=== PATIENT | female | born 1935 | race Caucasian/White ===

== ENCOUNTER 2023-03-07 17:01 | Inpatient (IN) | payer MEDICARE ==
--- NOTE | 2023-03-07 17:09 | ED ---
General Adult HPI - General Source: RN notes reviewed <Naomi Ordonez - Last Filed: 03/07/23 17:08> <Raad Pinto - Last Filed: 03/07/23 22:04> - General Stated complaint: Blood clot in lung Time Seen by Provider: 03/07/23 17:08 - History of Present Illness Initial comments: 87-year-old female presents to the emergency department with a chief complaint of abnormal imaging. Patient reports that she was traveling from [facility] when her doctor called her to notify her that she has a positive CT for pulmonary embolism. Patient reports shortness of breath upon exertion. (Naomi Ordonez) 87 year Old female with a past medical history significant for uterine cancer presents to the ED with chief complaint of pulmonary embolism. Patient had a full body computed tomography scan performed at 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 Patient reports that she received a call this morning advising her to present to the ED for further evaluation due to finding of segmental and subsegmental PE of the anterior right upper lobe, posterior right lower lobe. No evidence of right heart strain. Also findings of indeterminate lung nodules measuring between 2-3 mm area. She reports that she exercises regularly and normally walks. She states over the past 2-3 months has noticed some increased dyspnea with exertion however reports it has not been severe. Currently reports no shortness of breath. No chest pain. No abdominal pain. No nausea vomiting diarrhea. No other complaints. (Raad Pinto) - Related Data Allergies Allergy/AdvReac Type Severity Reaction Status Date / Time Penicillins AdvReac Causes Verified 03/07/23 22:02 yeast infection Review of Systems ROS Other: All systems not noted in ROS Statement are negative. <Naomi Ordonez - Last Filed: 03/07/23 17:08> ROS Other: All systems not noted in ROS Statement are negative. <Raad Pinto - Last Filed: 03/07/23 22:04> ROS Statement: Those systems with pertinent positive or pertinent negative responses have been documented in the HPI. General Exam <Naomi Ordonez - Last Filed: 03/07/23 17:08> Limitations: no limitations General appearance: alert, in no apparent distress Neck exam: Present: normal inspection Respiratory exam: Present: wheezes (Inspiratory wheezing bilaterally.) Cardiovascular Exam: Present: regular rate, normal rhythm GI/Abdominal exam: Present: soft Neurological exam: Present: alert, oriented X3 Skin exam: Present: warm, dry <GuerdaKari schreiberRaad - Last Filed: 03/07/23 22:04> - General Exam Comments Initial Comments: Visual Physical Exam Vital signs reviewed General: Well-appearing, nontoxic, no acute distress. Head: Normocephalic, atraumatic Eyes: PERRLA, EOMI ENT: Airway patent Chest: Nonlabored breathing Skin: No visual rash, normal skin tone Neuro: Alert and oriented 3 Musculoskeletal: No gross abnormalities I performed the quick note portion of this exam, verbal signature Naomi Ordnoez PA-C (Naomi Ordonez) Course Vital Signs 03/07/23 17:10 Temperature 98.7 F Pulse Rate 78 Respiratory 18 Rate Blood Pressure 182/72 O2 Sat by Pulse 96 Oximetry Medical Decision Making - Lab Data Result diagrams: 03/07/23 19:19 03/07/23 19:19 <BlairRaad - Last Filed: 03/07/23 22:04> - Medical Decision Making Was pt. sent in by a medical professional or institution ([facility], [facility], urgent care, hospital, or [facility]...) When possible be specific @ -No Did you speak to anyone other than the patient for history (EMS, parent, family, police, friend...)? What history was obtained from this source @ -No Did you review nursing and triage notes (agree or disagree)? Why? @ -I reviewed and agree with nursing and triage notes Were old charts reviewed (outside hosp., previous admission, EMS record, old EKG, old radiological studies, urgent care reports/EKG's, [facility] records)? Report findings @ -No old charts were reviewed Differential Diagnosis (chest pain, altered mental status, abdominal pain women, abdominal pain men, vaginal bleeding, weakness, fever, dyspnea, syncope, headache, dizziness, GI bleed, back pain, seizure, CVA, palpatations, mental health, musculoskeletal)? @ -Differential Dyspnea: Coronary syndrome, arrhythmia, tamponade, asthma, COPD, pulmonary embolism, pneumonia, pneumothorax, pulmonary effusion, anaphylaxis, diabetic ketoacidosis, flailed chest, pulmonary contusion, diaphragmatic rupture, anemia, neuromuscular, this is not meant to be an all-inclusive list. EKG interpreted by me (3pts min.). @ -As above X-rays interpreted by me (1pt min.). @ -Chest x-ray interpreted by me showing no evidence of acute finding. CT interpreted by me (1pt min.). @ -None done U/S interpreted by me (1pt. min.). @ -None done What testing was considered but not performed or refused? (CT, X-rays, U/S, labs)? Why? @ -None What meds were considered but not given or refused? Why? @ -None Did you discuss the management of the patient with other professionals (professionals i.e. , PA, [facility], lab, RT, psych nurse, 7th grade social studies teacher, air quality engineer, teacher, weapons electrical engineering officer, rn case manager)? Give summary @ -Case discussed with Dr. Roche who accepts admission. Was smoking cessation discussed for >3mins.? @ -No Was critical care preformed (if so, how long)? @ -Yes, 30 minutes. Were there social determinants of health that impacted care today? How? (Homelessness, low income, unemployed, alcoholism, drug addiction, transportation, low edu. Level, literacy, decrease access to med. care, group home, rehab)? @ -No Was there de-escalation of care discussed even if they declined (Discuss DNR or withdrawal of care, Hospice)? DNR status @ -No What co-morbidities impacted this encounter? (DM, HTN, Smoking, COPD, CAD, Cancer, CVA, ARF, Chemo, Hep., AIDS, mental health diagnosis, sleep apnea, morbid obesity)? @ -None Was patient admitted / discharged? Hospital course, mention meds given and route, prescriptions, significant lab abnormalities, going to OR and other pertinent info. @ -Admission A 87-year-old female with past medical history significant for recently discovered uterine mass presenting to the ED with chief complaint of abnormal imaging. Patient reports finding of uterine mass and had a CT chest abdomen pelvis performed yesterday. This showed segmental and subsegmental PE of the anterior right upper lobe and posterior right lower lobe. Laboratory studies sig nificant for elevated BUN/creatinine 33, creatinine 1.06, and troponin at 0.089. At this time, patient is not having any chest pain. Patient will be admitted with cardiology and pulmonology. IV heparin initiated in the ED. Discussed plan of care with patient and family who are in agreement. Drug Therapy requiring intensive monitoring for toxicity (Heparin, Nitro, Insulin, Cardizem)? @ -No Were any procedures done? @ -No Diagnosis/symptom? @ -Pulmonary embolism, elevated troponin Acute, or Chronic, or Acute on Chronic? @ -Acute Uncomplicated (without systemic symptoms) or Complicated (systemic symptoms)? @ -Complicated Side effects of treatment? @ -No Exacerbation, Progression, or Severe Exacerbation? @ -No Poses a threat to life or bodily function? How? (Chest pain, [place], [place], pneumonia, PE, COPD, DKA, ARF, appy, cholecystitis, CVA, Diverticulitis, Homicidal, Suicidal, threat to staff... and all critical care pts) @ -Dayna (Raad Pinto) - Lab Data Lab Results 03/07/23 03/07/23 03/07/23 Range/Units 19:19 19:19 19:19 WBC 8.1 (3.8-10.6) k/uL RBC 4.12 (3.80-5.40) m/uL Hgb 12.6 (11.4-16.0) gm/dL Hct 37.9 (34.0-46.0) % MCV 91.8 (80.0-100.0) fL MCH 30.7 (25.0-35.0) pg MCHC 33.4 (31.0-37.0) g/dL RDW 12.1 (11.5-15.5) % Plt Count 393 (150-450) k/uL MPV 7.7 Neutrophils % 69 % Lymphocytes % 20 % Monocytes % 6 % Eosinophils % 3 % Basophils % 0 % Neutrophils # 5.5 (1.3-7.7) k/uL Lymphocytes # 1.6 (1.0-4.8) k/uL Monocytes # 0.5 (0-1.0) k/uL Eosinophils # 0.2 (0-0.7) k/uL Basophils # 0.0 (0-0.2) k/uL PT 10.6 (10.0-12.5) sec INR 1.0 (<1.2) APTT 22.7 (22.0-30.0) sec Sodium 140 (137-145) mmol/L Potassium 4.4 (3.5-5.1) mmol/L Chloride 106 (98-107) mmol/L Carbon Dioxide 20 L (22-30) mmol/L Anion Gap 14 mmol/L BUN 33 H (7-17) mg/dL Creatinine 1.06 H (0.52-1.04) mg/dL Est GFR (CKD-EPI)AfAm 56 (>60 ml/min/1.73 sqM) Est GFR (CKD-EPI)NonAf 48 (>60 ml/min/1.73 sqM) Glucose 97 (74-99) mg/dL Calcium 10.3 H (8.4-10.2) mg/dL Total Bilirubin 0.4 (0.2-1.3) mg/dL AST 26 (14-36) U/L ALT 25 (4-34) U/L Alkaline Phosphatase 122 (38-126) U/L Troponin I (0.000-0.034) ng/mL NT-Pro-B Natriuret Pep 831 pg/mL Total Protein 7.3 (6.3-8.2) g/dL Albumin 4.4 (3.5-5.0) g/dL 03/07/23 Range/Units 19:19 WBC (3.8-10.6) k/uL RBC (3.80-5.40) m/uL Hgb (11.4-16.0) gm/dL Hct (34.0-46.0) % MCV (80.0-100.0) fL MCH (25.0-35.0) pg MCHC (31.0-37.0) g/dL RDW (11.5-15.5) % Plt Count (150-450) k/uL MPV Neutrophils % % Lymphocytes % % Monocytes % % Eosinophils % % Basophils % % Neutrophils # (1.3-7.7) k/uL Lymphocytes # (1.0-4.8) k/uL Monocytes # (0-1.0) k/uL Eosinophils # (0-0.7) k/uL Basophils # (0-0.2) k/uL PT (10.0-12.5) sec INR (<1.2) APTT (22.0-30.0) sec Sodium (137-145) mmol/L Potassium (3.5-5.1) mmol/L Chloride (98-107) mmol/L Carbon Dioxide (22-30) mmol/L Anion Gap mmol/L BUN (7-17) mg/dL Creatinine (0.52-1.04) mg/dL Est GFR (CKD-EPI)AfAm (>60 ml/min/1.73 sqM) Est GFR (CKD-EPI)NonAf (>60 ml/min/1.73 sqM) Glucose (74-99) mg/dL Calcium (8.4-10.2) mg/dL Total Bilirubin (0.2-1.3) mg/dL AST (14-36) U/L ALT (4-34) U/L Alkaline Phosphatase (38-126) U/L Troponin I 0.089 H* (0.000-0.034) ng/mL NT-Pro-B Natriuret Pep pg/mL Total Protein (6.3-8.2) g/dL Albumin (3.5-5.0) g/dL - EKG Data EKG Comments: EKG shows a sinus rhythm with T-wave inversions in leads 3. OR 174, QRS 85, QT/QTc 363/384. (Raad Pinto) Disposition <Naomi Ordonez - Last Filed: 03/07/23 17:08> <Raad Pinto - Last Filed: 03/07/23 22:04> Clinical Impression: Pulmonary embolism, Elevated troponin Disposition: ADMITTED IP TO THIS [facility] Referrals: Nonstaff,Physician [Primary Care Provider] - 1-2 days
[2023-03-07 19:33] LABS: Basophils % (A) 0 %; Eosinophils # (A) 0.2 k/uL (0-0.7); Eosinophils % (A) 3 %; HCT 37.9 % (34.0-46.0); HGB 12.6 gm/dL (11.4-16.0); Lymphocytes # (A) 1.6 k/uL (1.0-4.8); Lymphocytes % (A) 20 %; MCH 30.7 pg (25.0-35.0); MCHC 33.4 g/dL (31.0-37.0); MCV 91.8 fL (80.0-100.0); Mean Platelet Volume 7.7; Monocytes # (A) 0.5 k/uL (0-1.0); Monocytes % (A) 6 %; Neutrophils # (A) 5.5 k/uL (1.3-7.7); Neutrophils % (A) 69 %; Platelet Count 393 k/uL (150-450); RBC 4.12 m/uL (3.80-5.40); RDW 12.1 % (11.5-15.5); WBC 8.1 k/uL (3.8-10.6)
[2023-03-07 19:44] LABS: ALT 25 U/L (4-34); AST 26 U/L (14-36); African American GFR (CKD) 56 (>60 ml/min/1.73 sqM); Albumin 4.4 g/dL (3.5-5.0); Alkaline Phosphatase 122 U/L (38-126); Anion Gap 14 mmol/L; Blood Urea Nitrogen 33 mg/dL (7-17); Calcium 10.3 mg/dL (8.4-10.2); Carbon Dioxide 20 mmol/L (22-30); Chloride 106 mmol/L (98-107); Glucose 97 mg/dL (74-99); Non-African American GFR(CKD) 48 (>60 ml/min/1.73 sqM); Potassium 4.4 mmol/L (3.5-5.1); Sodium 140 mmol/L (137-145); Total Bilirubin 0.4 mg/dL (0.2-1.3); Total Protein 7.3 g/dL (6.3-8.2)
[2023-03-07 19:53] LABS: NT-Pro-B-Type Natriuretic Pept 831 pg/mL
--- NOTE | 2023-03-07 19:58 | XR ---
EXAMINATION TYPE: XR chest 2V DATE OF EXAM: 03/07/2023 COMPARISON: NONE HISTORY: Shortness of breath TECHNIQUE: Frontal and lateral views of the chest are obtained. FINDINGS: Mild underlying emphysematous changes are felt present on lateral view. There is no focal air space opacity, pleural effusion, or pneumothorax seen. Mild cardiomegaly is seen. The osseous s tructures are intact. IMPRESSION: Mild cardiomegaly without acute pulmonary process.
[2023-03-07 20:41] LABS: Partial Thromboplastin Time 22.7 sec (22.0-30.0); Prothrombin Time 10.6 sec (10.0-12.5)
[2023-03-07] MEDS ORDERED: HEPARIN SODIUM 1,000 UN/ML (10ML VL) IV ONE (21:57)
[2023-03-07] MEDS ORDERED: HEPARIN SODIUM 1,000 UN/ML (10ML VL) IV PRN (21:57)
[2023-03-07] MEDS ORDERED: HEPARIN SOD,PORK IN 0.45% NACL 25,000 UNIT in 0.45% NACL 1 250ML.BAG IV SCH (22:00)
[2023-03-07] MEDS ORDERED: ACETAMINOPHEN TAB 325 MG TAB PO PRN (22:05)
[2023-03-07] MEDS ORDERED: ONDANSETRON 4 MG/2 ML VIAL IVP PRN (22:05)
[2023-03-07] MEDS ORDERED: NALOXONE 0.4 MG/ML 1 ML VIAL IV PRN (22:05)
[2023-03-07] MEDS ORDERED: HYDROmorphone 1 MG/ML 1 ML SYRINGE IVP PRN (22:05)
[2023-03-07] MEDS: SODIUM CHLORIDE 0.9% 1,000 ML IV SCH (22:16)
[2023-03-08 04:23] LABS: Basophils % (A) 0 %; Eosinophils # (A) 0.3 k/uL (0-0.7); Eosinophils % (A) 5 %; HCT 33.5 % (34.0-46.0); HGB 11.3 gm/dL (11.4-16.0); Lymphocytes # (A) 1.1 k/uL (1.0-4.8); Lymphocytes % (A) 19 %; MCH 30.9 pg (25.0-35.0); MCHC 33.7 g/dL (31.0-37.0); MCV 91.6 fL (80.0-100.0); Mean Platelet Volume 7.7; Monocytes # (A) 0.3 k/uL (0-1.0); Monocytes % (A) 5 %; Neutrophils % (A) 69 %; Platelet Count 379 k/uL (150-450); RBC 3.65 m/uL (3.80-5.40); WBC 5.8 k/uL (3.8-10.6)
[2023-03-08 04:29] LABS: Partial Thromboplastin Time 30.9 sec (22.0-30.0); Prothrombin Time 10.8 sec (10.0-12.5)
--- NOTE | 2023-03-08 08:02 | P.PN ---
Subjective Progress Note Date: 03/08/23 History of Presenting Illness: Patient is a Review of systems: Pertinent positives and negatives as discussed in HPI, a complete review of systems was performed and all other systems are negative. Physical exam: Vital signs reviewed and stable. General: Nontoxic, no distress and appears stated age. Derm: Skin warm and dry, normal coloration for ethnicity. Head: Atraumatic, normocephalic and symmetric. Eyes: EOMs intact, no lid lag, and anicteric sclera Mouth: no lip lesions, mucus membranes moist Cardiovascular: regular rate and rhythm with normal S1S2, no murmur, positive posterior tibial pulses bilaterally, and cap refill < 2 seconds. Lungs: Respirations even, regular, and unlabored on room air. Lungs CTA bilaterally, no rhonchi, no rales, no wheezing, and no accessory muscle usage. Abdominal: soft, nontender to palpation, no guarding, no appreciable organ omegaly Ext: ROM intact. No gross muscle atrophy, no edema, no contractures Neuro: Speech clear, face symmetrical and CN II-XII grossly intact with no noted focal neuro deficits Psych: Alert and oriented to person, place, time, and situation. Appropriate and pleasant affect. Assessment and Plan of Care: The patient is admitted with an anticipated greater than 2 midnight stay for evaluation of []. CODE STATUS:[] DVT prophylaxis: [] Discussed with: [] Anticipated discharge date: [] Anticipated discharge place: [] Patient was seen independently by Nurse Practitioner. This document was prepared using [employer] dictation software. Please allow for errors in senior recruitment consultant while rare they do occur. Objective - Vital Signs Vital signs: Vital Signs Temp 98.7 F 03/07/23 17:10 Pulse 56 L 03/08/23 06:08 Resp 16 03/08/23 06:08 BP 144/97 03/08/23 06:08 Pulse Ox 98 03/08/23 06:08 FiO2 Intake & Output 03/07/23 03/08/23 03/08/23 18:59 06:59 18:59 Intake Total 56.63 Balance 56.63 Weight 69.4 kg Intake: Intake, IV Titration 56.63 Amount Heparin Sod,Pork in 0.45% 56.63 NaCl 25,000 unit In 0.45 % NaCl 1 250ml.bag @ 12 UNITS/KG/HR 8.328 mls/hr IV .Q24H [facility], [facility]1983 Rx#: [id number] - Labs CBC & Chem 7: 03/08/23 03:54 03/07/23 19:19 Labs: Abnormal Lab Results - Last 24 Hours (Table) 03/07/23 03/07/23 03/08/23 Range/Units 19:19 19:19 01:40 RBC (3.80-5.40) m/uL Hgb (11.4-16.0) gm/dL Hct (34.0-46.0) % APTT (22.0-30.0) sec Carbon Dioxide 20 L (22-30) mmol/L BUN 33 H (7-17) mg/dL Creatinine 1.06 H (0.52-1.04) mg/dL Calcium 10.3 H (8.4-10.2) mg/dL Troponin I 0.089 H* 0.071 H* (0.000-0.034) ng/mL 03/08/23 03/08/23 Range/Units 03:54 03:54 RBC 3.65 L (3.80-5.40) m/uL Hgb 11.3 L (11.4-16.0) gm/dL Hct 33.5 L (34.0-46.0) % APTT 30.9 H (22.0-30.0) sec Carbon Dioxide (22-30) mmol/L BUN (7-17) mg/dL Creatinine (0.52-1.04) mg/dL Calcium (8.4-10.2) mg/dL Troponin I (0.000-0.034) ng/mL
--- NOTE | 2023-03-08 08:09 | P.HPIM ---
History of Present Illness H&P Date: 03/08/23 Admission orders placed on this patient on 03/07/23 at 9:24 PM, however [facility] was not notified of this admission until this morning at 7:45 A.M.. History of Presenting Illness: Patient is a very pleasant 87-year-old female with recently diagnosed uterine cancer under care of Dr. Hunt projector operator/oncologist at [facility]. Patient reports she just evaluated by a gynecologic oncologist for possible hysterectomy in May and just finished her last CT for staging of he r cancer and [facility] on 03/06/23. She reports that she and her split their time between their house in [place] and their house in [place]. She reports that they were driving up to [place] when she received a phone call from her doctor informing her that she had blood clots in her lungs and needed to go to the emergency department immediately. She informed her doctor that she was driving to [place] and they did not want her to drive back instructing her to go to the nearest emergency department for treatment. Patient reports that she has been experiencing exertional shortness of breath, decreased exercise tolerance, and occasional shortness of breath at rest. She reports she has been experiencing these symptoms over the past 2 months and that they have progressively worsened and she just contributed it to her recent diagnosis of uterine cancer. She denies having any headache, lightheadedness, dizziness, chest pain/tightness, palpitations, cough or congestion, nausea, vomiting, or experiencing any numbness/tingling/weakness/swelling in her extremities. CT chest, abdomen, and pelvis with IV contrast radiology report from [facility] system has been reviewed stating incidental segmental and subsegmental PE in the anterior right upper lobe and posterior right lower lobe with no reported evidence of heart strain, indeterminate lung nodules measuring between 2-3 mm, and a 3.6 x 2.9 cm heterogeneously enhancing lesion in the lower uterus that likely corresponds to the uterine primary site of recent resection with associated endometrial distention with fluid, 3.9 x 3.3 cm right adnexal cyst, indeterminate subcapsular lesion with peripheral enhancement in the posterior spleen measuring 15 x 5 mm, and no reported enlarged lymph nodes in the chest, abdomen, or pelvis. Upon arrival to our emergency department, patient underwent full evaluation. Initially patient found to have elevated blood pressure 182/72, heart rate 78, respiratory rate 18, temp 98.7F, SpO2 of 96% on room air. Labs were completed and reviewed. CBC was unremarkable. Coagulation profile normal findings. BMP revealed slightly low bicarb of 20 and prerenal azotemia with BUN of 33, creatinine 1.06, and GFR 48. Calcium slightly elevated at 10.3. Liver profile unremarkable. Troponin elevated at 0.089 with proBNP of 831. Influenza A, influenza B, RSV, and Covid PCR were negative.. Patient admitted under our services with consultation hematology/oncology. Review of systems: Pertinent positives and negatives as discussed in HPI, a complete review of systems was performed and all other systems are negative. Physical exam: Vital signs reviewed and stable. General: Nontoxic, no distress and appears stated age. Derm: Skin warm and dry, normal coloration for ethnicity. Head: Atraumatic, normocephalic and symmetric. Eyes: EOMs intact, no lid lag, and anicteric sclera Mouth: no lip lesions, mucus membranes moist Cardiovascular: regular rate and rhythm with normal S1S2, no murmur, positive posterior tibial pulses bilaterally, and cap refill < 2 seconds. Lungs: Respirations even, regular, and unlabored on room air. Lungs CTA bilaterally, no rhonchi, no rales, no wheezing, and no accessory muscle usage. Abdominal: soft, nontender to palpation, no guarding, no appreciable organomegaly Ext: ROM intact. No gross muscle atrophy, no edema, no contractures Neuro: Speech clear, face symmetrical and CN II-XII grossly intact with no noted focal neuro deficits Psych: Alert and oriented to person, place, time, and situation. Appropriate and pleasant affect. Assessment and Plan of Care: Acute pulmonary emboli Elevated troponins, flat likely secondary to PEs -Troponins trended and reviewed. Resulting in 0.089, 0.071, and 0.062. -CT report states no signs of right heart strain however secondary to elevated troponins we will obtain a echocardiogram. -Chest x-ray negative for acute cardiopulmonary process and mild cardiomegaly without acute process. -EKG completed showing normal sinus rhythm at 70 bpm with T-wave inversion in inferior lead II upon personal review and interpretation. -Order placed for echocardiogram. -Patient was placed on heparin infusion in the emergency department and transition to oral Eliquis 10 mg twice a day. -Consult placed to hematology/oncology -Telemetry monitoring Uterine cancer with concerns of metastatic process -Patient recently diagnosed with uterine cancer and currently under final stages of testing and staging and follows with Dr. Cruzito Hunt at [facility]. Data reviewed: -Initially patient found to have elevated blood pressure 182/72, heart rate 78, respiratory rate 18, temp 98.7F, SpO2 of 96% on room air. -Labs were completed and reviewed. CBC was unremarkable. Coagulation profile normal findings. BMP revealed slightly low bicarb of 20 and prerenal azotemia with BUN of 33, creatinine 1.06, and GFR 48. Calcium slightly elevated at 10.3. Liver profile unremarkable. Troponin elevated at 0.089 with proBNP of 831. -Influenza A, influenza B, RSV, and Covid PCR were negative.. The patient is admitted with an anticipated greater than 2 midnight stay for evaluation of acute pulmonary emboli CODE STATUS: Full code DVT prophylaxis: Eliquis Anticipated discharge date: Clinical course to determine, likely 24-[address]: Home Patient was seen independently by Nurse Practitioner. This document was prepared using [employer] dictation software. Please allow for errors in brake repairer bus while rare they do occur. Melvin Nettles NP rendered care for this patient independently, reviewed the findings and plan as documented in the note above. I did not physically speak with or examine the patient on this date. Past Medical History Past Medical History: Cancer Additional Past Medical History / Comment(s): Uterine cancer, PE left lung History of Any Multi-Drug Resistant Organisms: None Reported Past Surgical History: No Surgical Hx Reported Past Psychological History: Anxiety, Depression Smoking Status: Former smoker Past Alcohol Use History: Rare Past Drug Use History: None Reported - Past Family History Mother Family Medical History: Diabetes Mellitus, Myocardial Infarction ([place]) Additional Family Medical History / Comment(s): at age 54 Medications and Allergies Home Medications Medication Instructions Recorded Confirmed Type Losartan/Hydrochlorothiazide 1 tab PO DAILY 03/07/23 03/07/23 History [Hyzaar 100-25 Tablet] Megestrol Acetate 20 mg PO DAILY 03/07/23 03/07/23 History Metoprolol Succinate (ER) [Toprol 50 mg PO DAILY 03/07/23 03/07/23 History Xl] Pravastatin Sodium [Pravachol] 80 mg PO HS 03/07/23 03/07/23 History Allergies Allergy/AdvReac Type Severity Reaction Status Date / Time Penicillins AdvReac Causes Verified 03/07/23 22:02 yeast infection Physical Exam Osteopathic Statement: *. No significant issues noted on an osteopathic structural exam other than those noted in the History and Physical/Consult. Vitals: Vital Signs Temp Pulse Resp BP Pulse Ox 03/08/23 06:08 56 L 16 144/97 98 03/08/23 04:00 58 L 16 159/72 97 03/08/23 03:00 66 18 150/70 97 03/07/23 22:34 88 18 172/74 97 03/07/23 17:10 98.7 F 78 18 182/72 96 Intake and Output 03/07/23 03/08/23 03/08/23 22:59 06:59 14:59 Intake Total 56.63 Balance 56.63 Intake: Intake, IV Titration 56.63 Amount Heparin Sod,Pork in 0.45% 56.63 NaCl 25,000 unit In 0.45 % NaCl 1 250ml.bag @ 12 UNITS/KG/HR 8.328 mls/hr IV .Q24H [facility] Rx#: [id number] Other: Weight 69.4 kg Results CBC & Chem 7: 03/08/23 03:54 03/07/23 19:19 Labs: Abnormal Lab Results - Last 24 Hours (Table) 03/07/23 03/07/23 03/08/23 Range/Units 19:19 19:19 01:40 RBC (3.80-5.40) m/uL Hgb (11.4-16.0) gm/dL Hct (34.0-46.0) % APTT (22.0-30.0) sec Carbon Dioxide 20 L (22-30) mmol/L BUN 33 H (7-17) mg/dL Creatinine 1.06 H (0.52-1.04) mg/dL Calcium 10.3 H (8.4-10.2) mg/dL Troponin I 0.089 H* 0.071 H* (0.000-0.034) ng/mL 03/08/23 03/08/23 Range/Units 03:54 03:54 RBC 3.65 L (3.80-5.40) m/uL Hgb 11.3 L (11.4-16.0) gm/dL Hct 33.5 L (34.0-46.0) % APTT 30.9 H (22.0-30.0) sec Carbon Dioxide (22-30) mmol/L BUN (7-17) mg/dL Creatinine (0.52-1.04) mg/dL Calcium (8.4-10.2) mg/dL Troponin I (0.000-0.034) ng/mL
[2023-03-08] MEDS: METOPROLOL SUCCINATE (ER) 50 MG TAB.ER.24H PO SCH (09:51)
[2023-03-08] MEDS: LOSARTAN-HCTZ 50-12.5 MG 1 EACH TAB PO SCH (10:40)
[2023-03-08] MEDS: SODIUM CHLORIDE 0.9% 1,000 ML IV SCH (13:25)
--- NOTE | 2023-03-08 14:33 | P.CONS ---
History of Present Illness - Reason for Consult Consult date: 03/08/23 Pulmonary embolism - Chief Complaint Cough - History of Present Illness Ms. 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 She recently underwent D&C through the [facility] and was diagnosed with serous adenocarcinoma. 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 In addition to having colonoscopy to evaluate for the presence of colon cancer due to the concern for Rapp Syndrome, she underwent staging CT scan on 03/06/2023 for the uterine adenocarcinoma. They live in [place] and have a home in [place]. On their way to [place], they received a phone call notifying them of an incidental diagnosis of pulmonary embolism. They were advised to present to the closest ED for additional management as opposed to coming back to the [facility] area for care. On presentation, she was found to be hemodynamically stable and afebrile. CBC revealed no evidence of abnormality. CMP revealed mildly high calcium of 10.3. Troponin was initially elevated at 0.089, which downtrended. Viral PCR's were negative. Chest x-ray revealed mild cardiomegaly but no acute cardiopulmonary process. She was started on therapeutic heparin drip hematology be consulted for additional management recommendations. Prior to her presentation, she notes having had cough for the past 2 weeks. Following the cough, she had some sternal chest discomfort. She denied any pleuritic chest pain, dyspnea, or hemoptysis. Of note, she had been prescribed Megace by her physician Dr. Juanita Hunt as an adjunct of treatment for her uterine cancer. She denies any history of recent trauma, prolonged travel outside of car rides to [place], [place], or current cigarette smoking. Review of Systems 14 point review of systems conducted with pertinent positives and negatives as noted per HPI Past Medical History Past Medical History: Cancer Additional Past Medical History / Comment(s): Uterine cancer, PE left lung History of Any Multi-Drug Resistant Organisms: None Reported Past Surgical History: No Surgical Hx Reported Past Psychological History: Anxiety, Depression Smoking Status: Former smoker Past Alcohol Use History: Rare Past Drug Use History: None Reported Medications and Allergies Home Medications Medication Instructions Recorded Confirmed Type Losartan/Hydrochlorothiazide 1 tab PO DAILY 03/07/23 03/07/23 History [Hyzaar 100-25 Tablet] Megestrol Acetate 20 mg PO DAILY 03/07/23 03/07/23 History Metoprolol Succinate (ER) [Toprol 50 mg PO DAILY 03/07/23 03/07/23 History Xl] Pravastatin Sodium [Pravachol] 80 mg PO HS 03/07/23 03/07/23 History Allergies Allergy/AdvReac Type Severity Reaction Status Date / Time Penicillins AdvReac Causes Verified 03/07/23 22:02 yeast infection Physical Exam Vitals: Vital Signs Temp Pulse Resp BP Pulse Ox 03/08/23 11:51 65 18 134/70 99 03/08/23 09:52 57 L 18 150/67 97 03/08/23 06:08 56 L 16 144/97 98 03/08/23 04:00 58 L 16 159/72 97 03/08/23 03:00 66 18 150/70 97 03/07/23 22:34 88 18 172/74 97 03/07/23 17:10 98.7 F 78 18 182/72 96 Intake and Output 03/07/23 03/08/23 03/08/23 22:59 06:59 14:59 Intake Total 56.63 Balance 56.63 Intake: Intake, IV Titration 56.63 Amount Heparin Sod,Pork in 0.45% 56.63 NaCl 25,000 unit In 0.45 % NaCl 1 250ml.bag @ 12 UNITS/KG/HR 8.328 mls/hr IV .Q24H [facility] Rx#: [id number] Other: Weight 69.4 kg - Constitutional General appearance: average body habitus, cooperative, no acute distress - EENT Eyes: EOMI - Respiratory Respiratory: bilateral: CTA - Cardiovascular Rhythm: regular Heart sounds: normal: S1, S2 - Gastrointestinal General gastrointestinal: no distended, normal bowel sounds, soft, no tenderness - Integumentary Integumentary: no rash - Neurologic Neurologic: CNII-XII intact Results CBC & Chem 7: 03/08/23 03:54 03/07/23 19:19 Labs: Abnormal Lab Results - Last 24 Hours (Table) 03/07/23 03/07/23 03/08/23 Range/Units 19:19 19:19 01:40 RBC (3.80-5.40) m/uL Hgb (11.4-16.0) gm/dL Hct (34.0-46.0) % APTT (22.0-30.0) sec Carbon Dioxide 20 L (22-30) mmol/L BUN 33 H (7-17) mg/dL Creatinine 1.06 H (0.52-1.04) mg/dL Calcium 10.3 H (8.4-10.2) mg/dL Troponin I 0.089 H* 0.071 H* (0.000-0.034) ng/mL 03/08/23 03/08/23 03/08/23 Range/Units 03:54 03:54 07:32 RBC 3.65 L (3.80-5.40) m/uL Hgb 11.3 L (11.4-16.0) gm/dL Hct 33.5 L (34.0-46.0) % APTT 30.9 H (22.0-30.0) sec Carbon Dioxide (22-30) mmol/L BUN (7-17) mg/dL Creatinine (0.52-1.04) mg/dL Calcium (8.4-10.2) mg/dL Troponin I 0.062 H* (0.000-0.034) ng/mL 03/08/23 Range/Units 11:38 RBC (3.80-5.40) m/uL Hgb (11.4-16.0) gm/dL Hct (34.0-46.0) % APTT >200.0 H* (22.0-30.0) sec Carbon Dioxide (22-30) mmol/L BUN (7-17) mg/dL Creatinine (0.52-1.04) mg/dL Calcium (8.4-10.2) mg/dL Troponin I (0.000-0.034) ng/mL Assessment and Plan (1) Endometrial/uterine adenocarcinoma Current Visit: Yes Status: Acute Code(s): C54.1 - MALIGNANT NEOPLASM OF ENDOMETRIUM SNOMED Code(s): 124832796 (2) Pulmonary embolism Current Visit: Yes Status: Acute Code(s): I26.99 - OTHER PULMONARY EMBOLISM WITHOUT ACUTE COR PULMONALE SNOMED Code(s): 59796625 Plan: # Pulmonary embolism -Noted to have incidental finding of pulmonary embolism on CT scans obtained at [facility] on 03/06/2023 for staging purposes of recently diagnosed serous adenocarcinoma -Her cough may not have been related to diagnosed pulmonary embolism -In addition to a recent diagnosis of serous adenocarcinoma of the uterus, she was also recently started on Megace by her gynecologic oncologist, which can occur as soon as 10 days after starting Megace -She may have had a provoked pulmonary embolism due to Megace in addition to having increased risk and due to uterine cancer -Recommend obtaining bilateral venous duplex ultrasounds to assess for DVT in the lower extremities -She should stop Megace for right now until she follows up with her gynecologic oncologist as this could have been a contributing factor -From a heme-onc perspective, she can be transition from therapeutic heparin drip to oral Eliquis 10 mg twice daily for 1 week followed by 5 mg twice daily -She should remain on this indefinitely depending on the stage and subsequent treatment of her uterine cancer, which would be determined further by her gynecologic oncologist # Serous adenocarcinoma -Undergoing work-up and management through the [facility] and follows with Dr. 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 Silveira and her .)
--- NOTE | 2023-03-08 15:12 | CA ---
Transthoracic Echo Report Name: Flory Silveira Age: 87 Gender: F : 1935 Exam Date: 03/08/2023 11:02 Exam Location: [facility] Ht (in): 64 Wt (lb): 153 Ordering Physician: Melvin Nettles Attending/Referring Phys: Case Technician Carley Avila [facility] Procedure CPT: Indications: pt with PE, R/O heart strain Cardiac Hx: Technical Quality: Fair Contrast 1: Total Dose (mL): Contrast 2: Total Dose (mL): MEASUREMENTS (Male / Female) Normal Values 2D ECHO LV Diastolic Diameter PLAX 4.4 cm 4.2 - 5.9 / 3.9 - 5.3 cm LV Systolic Diameter PLAX 2.5 cm IVS Diastolic Thickness 1.0 cm 0.6 - 1.0 / 0.6 - 0.9 cm LVPW Diastolic Thickness 0.9 cm 0.6 - 1.0 / 0.6 - 0.9 cm LV Relative Wall Thickness 0.4 RV Internal Dim ED PLAX 2.7 cm LVOT Diameter 2.0 cm Ascending Aorta Diameter 3.1 cm M-MODE Aortic Root Diameter MM 2.2 cm LA Systolic Diameter MM 4.3 cm LA Ao Ratio MM 2.0 AV Cusp Separation MM 1.4 cm DOPPLER AV Peak Velocity 168.9 cm/s AV Peak Gradient 11.4 mmHg AV Mean Velocity 115.4 cm/s AV Mean Gradient 6.0 mmHg AV Velocity Time Integral 35.1 cm LVOT Peak Velocity 127.9 cm/s LVOT Peak Gradient 6.5 mmHg LVOT Velocity Time Integral 30.0 cm LVOT Stroke Volume 95.7 cm??? LVOT Stroke Volume Index 54.8 ml/m??? LVOT Cardiac Index 2949.2 cm???/min???m??? AV Area Cont Eq vti 2.7 cm??? AV Area Cont Eq pk 2.4 cm??? Mitral E Point Velocity 83.1 cm/s Mitral A Point Velocity 105.3 cm/s Mitral E to A Ratio 0.8 MV Deceleration Time 255.7 ms LV E' Lateral Velocity 7.4 cm/s Mitral E to LV E' Lateral Ratio 11.3 LV E' Septal Velocity 6.9 cm/s Mitral E to LV E' Septal Ratio 12.0 TR Peak Velocity 271.6 cm/s TR Peak Gradient 29.5 mmHg Right Atrial Pressure 3.0 mmHg Pulmonary Artery Systolic Pressu 32.5 mmHg Right Ventricular Systolic Press 32.5 mmHg FINDINGS Left Ventricle Mildly increased left ventricular wall thickness. Left ventricular cavity size normal. Normal left ventricular systolic function with no obvious regional wall motion abnormalities. Left ventricular ejection fraction is estimated at 60- 65%. Right Ventricle Upper normal right ventricular size and normal function. Mild pulmonary hypertension. Right Atrium Normal right atrial size. Left Atrium Normal left atrial size. Mitral Valve Mild thickening/calcification of the posterior mitral valve leaflet. No mitral regurgitation. Aortic Valve Aortic valve not well visualized. No aortic valve stenosis or regurgitation. Aortic valve sclerosis. Tricuspid Valve Structurally normal tricuspid valve. Mild tricuspid regurgitation. Pulmonic Valve Pulmonic valve not well visualized. Pericardium Minimal pericardial effusion (normal variant). Echo free space anterior to the right ventricle likely represents a fat pad. Aorta Normal size aortic root and proximal ascending aorta. CONCLUSIONS Mild increased left ventricular wall thickness Left ventricular ejection fraction 60-65% RVSP 32 No mitral regurgitation Mild tricuspid regurgitation Previewed by: Dr. Addison Leal DO (Electronically Signed) Final Date: 08 March 2023 15:12
--- NOTE | 2023-03-08 15:28 | US ---
EXAMINATION TYPE: US venous doppler duplex [facility] DATE OF EXAM: 03/08/2023 3:19 PM COMPARISON: NONE CLINICAL INDICATION: Female, 87 years old with history of Newly diagnosed PE, assess for DVT in LEs; PE SIDE PERFORMED: Bilateral TECHNIQUE: The lower extremity deep venous system is examined utilizing real time linear array sonog sherry with graded compression, doppler sonography and color-flow sonography. VESSELS IMAGED: Common Femoral Vein Deep Femoral Vein Greater Saphenous Vein * Femoral Vein Popliteal Vein Small Saphenous Vein * Proximal Calf Veins (* superficial vessels) Right Leg: Negative for DVT Left Leg: Negative for DVT IMPRESSION: 1. Bilateral lower extremity ultrasound negative for deep venous thrombosis.
[2023-03-08] MEDS ORDERED: APIXABAN 5 MG TAB PO SCH (15:42)
[2023-03-08] MEDS ORDERED: PRAVASTATIN SODIUM 80 MG TAB PO SCH (21:00)
[2023-03-08] MEDS: APIXABAN 5 MG TAB PO SCH (23:30)
[2023-03-08 23:38] VITALS: RESP 16
[2023-03-09] MEDS: SODIUM CHLORIDE 0.9% 1,000 ML IV SCH (00:37)
[2023-03-09 07:40] LABS: HCT 34.6 % (34.0-46.0); HGB 11.8 gm/dL (11.4-16.0); MCH 31.7 pg (25.0-35.0); MCHC 34.1 g/dL (31.0-37.0); MCV 93.1 fL (80.0-100.0); Mean Platelet Volume 7.9; Platelet Count 383 k/uL (150-450); RBC 3.72 m/uL (3.80-5.40); RDW 12.1 % (11.5-15.5)
[2023-03-09 08:02] LABS: ALT 19 U/L (4-34); AST 21 U/L (14-36); African American GFR (CKD) 61 (>60 ml/min/1.73 sqM); Albumin 3.4 g/dL (3.5-5.0); Alkaline Phosphatase 97 U/L (38-126); Anion Gap 9 mmol/L; Blood Urea Nitrogen 27 mg/dL (7-17); Calcium 9.5 mg/dL (8.4-10.2); Carbon Dioxide 23 mmol/L (22-30); Chloride 109 mmol/L (98-107); Glucose 101 mg/dL (74-99); Magnesium 1.7 mg/dL (1.6-2.3); Non-African American GFR(CKD) 53 (>60 ml/min/1.73 sqM); Potassium 4.6 mmol/L (3.5-5.1); Sodium 141 mmol/L (137-145); Total Bilirubin 0.4 mg/dL (0.2-1.3); Total Protein 6.2 g/dL (6.3-8.2)
[2023-03-09 08:22] VITALS: TEMP 98
[2023-03-09] MEDS: APIXABAN 5 MG TAB PO SCH (08:53)
[2023-03-09] MEDS: LOSARTAN-HCTZ 50-12.5 MG 1 EACH TAB PO SCH (08:53)
[2023-03-09] MEDS: METOPROLOL SUCCINATE (ER) 50 MG TAB.ER.24H PO SCH (08:53)
[2023-03-09 11:47] VITALS: BP 165/66; PULSE 58
--- NOTE | 2023-03-09 13:41 | P.DS ---
Providers Date of admission: 03/07/23 21:24 Expected date of discharge: 03/09/23 Attending physician: Patrice Roche MD Consults: 03/08/23 08:25 Consult Physician Routine Consulting Provider: Song Beverly Consult Reason/Comments: uterine cancer with mets and newly dx PEs Do you want consulting provider notified?: Yes Primary care physician: Physician Nonstaff Hospital Course: Discharge Diagnosis: Acute pulmonary emboli. Patient was initially started on heparin infusion for anticoagulation. Bilateral lower extremity Dopplers were completed negative for DVTs. Heparin was discontinued and patient was transitioned to oral anticoagulation with Eliquis. Patient was evaluated by medical van driver/oncologist whom advised pt to stop taking Megace until further directed by her gynecologic oncologist as this can be a contributing factor to the development of her acute pulmonary emboli. Patient is medically stable at this time, free from any complaints of dizziness, lightheadedness, shortness of breath, chest pain, or palpitations. Vital signs are stable and patient maintaining SpO2 greater than 95% at rest and with ambulation on room air.. Patient is medically stable for discharge at this time and will need to follow up outpatient with her PCP in 1-3 days and with her medical van driver/oncologist within the next week. Elevated troponins, flat likely secondary to PEs. Echocardiogram was completed showing preserved EF of 60-65% with no reported signs of right heart strain. Uterine cancer with concerns of metastatic process. Patient recently diagnosed with uterine cancer and currently under final stages of testing and staging and follows with Dr. Cruzito Hunt at [facility]. Hospital Course: Patient is a very pleasant 87-year-old female with recently diagnosed uterine cancer under care of Dr. Hunt medical van driver/oncologist at [facility]. Patient reports she just evaluated by a gynecologic oncologist for possible hysterectomy in May and just finished her last CT for staging of her cancer and [facility] on 03/06/23. She reports that she and her split their time between their house in [place] and their house in [facility]. She reports that they were driving up to [place] when she received a phone call from her doctor informing her that she had blood clots in her lungs and needed to go to the emergency department immediately. She informed her doctor that she was driving to [place] and they did not want her to drive back instructing her to go to the nearest emergency department for treatment. Patient reports that she has been experiencing exertional shortness of breath, decreased exercise tolerance, and occasional shortness of breath at rest. She reports she has been experiencing these symptoms over the past 2 months and that they have progressively worsened and she just contributed it to her recent diagnosis of uterine cancer. She denies having any headache, lightheadedness, dizziness, chest pain/tightness, palpitations, cough or congestion, nausea, vomiting, or experiencing any numbness/tingling/weakness/swelling in her extremities. CT chest, abdomen, and pelvis with IV contrast radiology report from [facility] has been reviewed stating incidental segmental and subsegmental PE in the anterior right upper lobe and posterior right lower lobe with no reported evidence of heart strain, indeterminate lung nodules measuring between 2-3 mm, and a 3.6 x 2.9 cm heterogeneously enhancing lesion in the lower uterus that likely corresponds to the uterine primary site of recent resection with associated endometrial distention with fluid, 3.9 x 3.3 cm right adnexal cyst, indeterminate subcapsular lesion with peripheral enhancement in the posterior spleen measuring 15 x 5 mm, and no reported enlarged lymph nodes in the chest, abdomen, or pelvis. Upon arrival to our emergency department, patient underwent full evaluation. Initially patient found to have elevated blood pressure 182/72, heart rate 78, respiratory rate 18, temp 98.7F, SpO2 of 96% on room air. Labs were completed and reviewed. CBC was unremarkable. Coagulation profile normal findings. BMP revealed slightly low bicarb of 20 and prerenal azotemia with BUN of 33, creatinine 1.06, and GFR 48. Calcium slightly elevated at 10.3. Liver profile unremarkable. Troponin elevated at 0.089 with proBNP of 831. Influenza A, influenza B, RSV, and Covid PCR were negative.. Patient admitted under our services with consultation hematology/oncology. Patient was initially started on heparin infusion for anticoagulation. Echocardiogram was completed showing preserved EF of 60-65% with no reported signs of right heart strain. Bilateral lower extremity Dopplers were completed negative for DVTs. Heparin was discontinued and patient was transitioned to oral anticoagulation with Eliquis. Patient was evaluated by medical van driver/oncologist whom advised pt to stop taking Megace until further directed by her gynecologic oncologist as this can be a contributing factor to the development of her acute pulmonary emboli. Patient is medically stable at this time, free from any complaints of dizziness, lightheadedness, shortness of breath, chest pain, or palpitations. Vital signs are stable and patient maintaining SpO2 greater than 95% at rest and with ambulation on room air.. Patient is medically stable for discharge at this time and will need to follow up outpatient with her PCP in 1-3 days and with her medical van driver/oncologist within the next week. Physical exam: Vital signs reviewed and stable. General: Nontoxic, no distress and appears stated age. Derm: Skin warm and dry, normal coloration for ethnicity. Head: Atraumatic, normocephalic and symmetric. Eyes: EOMs intact, no lid lag, and anicteric sclera Mouth: no lip lesions, mucus membranes moist Cardiovascular: regular rate and rhythm with normal S1S2, no murmur, positive posterior tibial pulses bilaterally, and cap refill < 2 seconds. Lungs: Respirations even, regular, and unlabored on room air. Lungs CTA bilaterally, no rhonchi, no rales, no wheezing, and no accessory muscle usage. Abdominal: soft, nontender to palpation, no guarding, no appreciable organomegaly Ext: ROM intact. No gross muscle atrophy, no edema, no contractures Neuro: Speech clear, face symmetrical and CN II-XII grossly intact with no noted focal neuro deficits Psych: Alert and oriented to person, place, time, and situation. Appropriate and pleasant affect. A total of 33 minutes of time were spent preparing this complex discharge summary. Pt was discharged on 03/09/23 at 12:37 PM. Patient was seen independently by Nurse Practitioner. This document was prepared using [employer] dictation software. Please allow for errors in supervisor self service store while rare they do occur. Melvin Nettles NP rendered care for this patient independently, reviewed the findings and plan as documented in the note above. I did not physically speak with or examine the patient on this date Patient Condition at Discharge: Stable Plan - Discharge Summary Discharge Rx Participant: No New Discharge Prescriptions: New Apixaban [Eliquis Starter Pack (for VTE)] 5 - 10 mg PO DIRECTED 30 Days #1 each Apixaban [Eliquis] 5 mg PO BID 30 Days #74 tab Continue Pravastatin Sodium [Pravachol] 80 mg PO HS Metoprolol Succinate (ER) [Toprol XL] 50 mg PO DAILY Losartan/Hydrochlorothiazide [Hyzaar 100-25 Tablet] 1 tab PO DAILY Discontinued Megestrol Acetate 20 mg PO DAILY Discharge Medication List Losartan/Hydrochlorothiazide [Hyzaar 100-25 Tablet] 1 tab PO DAILY 03/07/23 [History] Metoprolol Succinate (ER) [Toprol XL] 50 mg PO DAILY 03/07/23 [History] Pravastatin Sodium [Pravachol] 80 mg PO HS 03/07/23 [History] Apixaban [Eliquis Starter Pack (for VTE)] 5 - 10 mg PO DIRECTED 30 Days #1 each 03/09/23 [Rx] Apixaban [Eliquis] 5 mg PO BID 30 Days #74 tab 03/09/23 [Rx] Patient Instructions/Handouts: Pulmonary Embolism (DC) Activity/Diet/Wound Care/Special Instructions: Activity: As tolerated. Take breaks as needed. Diet: Heart healthy and carb consistent diet. Avoid salts, or foods with hidden salts such as canned or boxed foods and frozen dinners. Extra salt makes your heart work harder and traps the fluid in your body for longer. Special Instructions: Take all of your medications as directed and remember to keep all of your doctor's appointments and follow-up with your PCP Dr. Nagel in 1-3 days and with your [employer] Supervisor/Oncologist, Dr. Hunt within the next week. It is recommended that he stop Megace until further directed by your gynecologic oncologist as this can be a contributing factor to the development of your acute pulmonary emboli. You are being discharged home on Eliquis 10 mg twice daily 7 days then 5 mg twice daily indefinitely until further recommended by your medical van driver/oncologist Dr. Hunt.. Being that you are being placed on a blood thinner it is very important to watch for any signs of bleeding and notify your doctor immediately if you notice any bleeding. It is also important to remove any trip hazards such as rugs or loose extension cords from your home to prevent unnecessary falls and if you do experience a fall or head injury, it is extremely important to be evaluated by a medical provider immediately to ensure no internal bleeding. Thank you for allowing us to participate in your care, it was truly a pleasure having you for our patient!!! Discharge Disposition: HOME SELF-CARE
[2023-03-15] MEDS ORDERED: APIXABAN 5 MG TAB PO SCH (09:00)
== END 2023-03-09 13:48 | disposition home or self-care (01) | DRG 176 ==
LOC: EC 17:01 → 3SCARD 21:24
PROVIDERS: ADMIT Internal Medicine; ATTEND Internal Medicine
DX: I26.93 Single subsegmental thrombotic pulmonary embolism without acute cor pulmonale (principal); C79.9 Secondary malignant neoplasm of unspecified site; C55 Malignant neoplasm of uterus, part unspecified; F32.A Depression, unspecified; F41.9 Anxiety disorder, unspecified; I08.1 Rheumatic disorders of both mitral and tricuspid valves; Z79.899 Other long term (current) drug therapy; Z20.822 Contact with and (suspected) exposure to COVID-19; R79.89 Other specified abnormal findings of blood chemistry; Z85.038 Personal history of other malignant neoplasm of large intestine; Z90.710 Acquired absence of both cervix and uterus; Z88.0 Allergy status to penicillin
CPT/HCPCS: 36415; 71046; 80053; 83735; 83880; 84484; 85025; 85027; 85610; 85730; 87636; 93005; 93306; 93970; 96365; 96366; 99291